=== PATIENT | male | born 1945 | race Caucasian/White ===

== ENCOUNTER 2016-06-15 19:52 | Inpatient (IN) ==
[2016-06-15] MEDS: *HR* OxyCODONE Immed Rel 5 MG TABLET PO PRN (23:55)
[2016-06-16] MEDS ORDERED: Acetaminophen 325 MG TABLET PO PRN (00:01)
[2016-06-16] MEDS ORDERED: Dextrose Gel 15 GM PO PRN ×2 (04:41)
[2016-06-16] MEDS ORDERED: D5% in Water 1,000 ML IV PRN (04:41)
[2016-06-16] MEDS ORDERED: *HR* Dextrose 50 % in Water (Syg) 50 ML SYRINGE IVP PRN (04:41)
[2016-06-16 06:44] LABS: Basophils % 0.1 %; Eosinophils % 0.2 %; Hematocrit 27.8 % (37.5-50.1); Hemoglobin 8.9 g/dL (12.9-16.9); Immature Granulocytes % 0.4 % (0-4); Lymphocytes # 1.5 K/mcL (0.6-4.6); Lymphocytes % 13.1 %; Mean Corpuscular Hemoglobin 28.1 pg (28.0-33.3); Mean Corpuscular Volume 87.7 fL (83.0-100.0); Mean Platelet Volume 10.4 fL (9.4-12.4); Monocytes # 0.8 K/mcL (0.0-1.3); Monocytes % 7.1 %; Neutrophils # 8.8 K/mcL (1.6-8.9); Platelet Count 296 K/mcL (140-400); Red Blood Count 3.17 M/mcL (4.19-5.50); Red Cell Distribution Width 17.8 % (11.5-14.5); Segmented Neutrophils % 79.1 %
[2016-06-16 06:50] LABS: INR 1.5; Prothrombin Time 16.6 Seconds (9.4-12.1)
[2016-06-16 06:53] LABS: Activated Partial Thrombo Time 29.8 Seconds (26.0-36.0)
[2016-06-16 07:02] LABS: BUN/Creatinine Ratio 31 (6-26); Blood Urea Nitrogen 17 mg/dL (8-26); Calcium 8.2 mg/dL (8.6-10.8); Carbon Dioxide 23 mEq/L (19-29); Chloride 114 mEq/L (98-109); Osmolality,Calculated 296 (280-300); Potassium 3.9 mEq/L (3.5-4.5); Sodium 144 mEq/L (136-145); eGFR For African Americans > 60 (> 60); eGFR For Non-African Americans > 60 (> 60)
[2016-06-16 07:40] LABS: Glucose 32 mg/dL (70-99)
[2016-06-16 07:47] LABS: Platelet Estimate Increased (Normal)
[2016-06-16 07:48] LABS: Anisocytosis 1+ (Not Present)
[2016-06-16] MEDS: Insulin LISPRO 300 UNITS/3 ML VIAL SQ SCH ×3 (08:45→16:56)
[2016-06-16] MEDS: Simethicone 80 MG TAB.CHEW PO PRN (09:15)
[2016-06-16] MEDS: *HR* Enoxaparin 80 MG/0.8 ML SYRINGE SQ SCH ×2 (09:20→22:09)
[2016-06-16] MEDS: Aspirin 81 MG TAB.CHEW PO SCH (10:43)
[2016-06-16] MEDS: Ascorbic Acid 500 MG TABLET PO SCH ×2 (10:43→22:09)
[2016-06-16] MEDS: *HR* OxyCODONE Immed Rel 5 MG TABLET PO PRN (11:29)
--- NOTE | 2016-06-16 15:00 | Internal Med History&Physical ---
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 Continue present management. Surgical follow-up at [facility] as directed. (2) CAD (coronary artery disease) Current visit: No Status: Chronic Continue Lopressor and aspirin. Qualifiers: Coronary Disease-Associated Artery/Lesion type: [place] artery [place] vs. transplanted heart: [place] heart Associated angina: without angina Qualified Code(s): I25.10 - Atherosclerotic heart disease of [place] coronary artery without angina pectoris (3) Anemia Current visit: Yes Status: Chronic Continue Procrit and monitor CBC Qualifiers: Anemia type: unspecified type Qualified Code(s): D64.9 - Anemia, unspecified (4) DM type 2 (diabetes mellitus, type 2) Current visit: No Status: Chronic Continue Accu-Cheks with SSI. Qualifiers: Diabetes mellitus complication status: with unspecified complications Diabetes mellitus rodent exterminator insulin use: with rodent exterminator use Qualified Code(s) : E11.8 - Type 2 diabetes mellitus with unspecified complications; Z79.4 - equipment operator intermodal yard (current) use of insulin (5) DVT (deep venous thrombosis) Current visit: No Status: Acute Status post IVC filter placement. Continue therapeutic dose Lovenox Qualifiers: DVT location: lower extremity Affected thrombotic vein of extremity: unspecified vein of extremity Laterality: bilateral Chronicity: chronic Qualified Code(s): I82.503 - Chronic embolism and thrombosis of unspecified deep veins of lower extremity, bilateral (6) Thrush, oral Current visit: Yes Status: Acute We will order Mycostatin mouthwash Internal Medicine - H&P: HPI Chief complaint: Pancreatitis complications Admitted From: Hospital to Hospital Transfer Plans for Post Hospital Care: Home History of present illness: Mr. Mike is a 70 year old male who was admitted to [facility] swing bed for ongoing care needs. He has been institutionalized continuously since 04/03/2016. He was at [facility] April 03-April 21 for complications of acute pancreatitis. He was admitted to [facility] swing bed April 21- but had worsening status so was transferred to [facility] April 27 where he remained until readmission to [facility] swing bed June 15. The [facility] hospitalization in March was the third hospitalization there since onset of pancreatitis 01/03/2016. Pancreatitis was felt to be due to metformin use. He developed a pseudocyst and attempted drainage via endoscopic shunt was unsuccessful. He developed sepsis and acute renal failure requiring hemodialysis during [facility] stays. Upon arrival to [facility] he underwent pancreatic necrosectomy with abdominal washout and IVC filter placement April 29. On May 02 he had laparotomy with pancreatic debridement and left thoracentesis. On May 10 he had laparotomy with abdominal washout gastrorrhaphy and NJ tube placement. On May 18 he abdominal wound exploration. Interventional radiology placed drains in the left upper quadrant May 30 and right upper quadrant June 08. These drains were removed prior to transfer to [facility] bed. He had multiple CT scans of abdomen/pelvis at [facility]. The most recent one was 05/29/2016 and resulted in placement of the abdominal drains described above by interventional radiology. His nutrition needs are met by continuous tube feedings through the NJ tube. Family reports that an attempt was made to do nocturnal feedings only but these were not tolerated well by the patient. He was told the past he had a "bad gallbladder" but has not had cholecystectomy. He had colon cancer 2003 with surgical resection but did not receive chemotherapy. He had a colonoscopy done during the [facility] stay. He does not have known disorders of his liver. Past Med Surg Social Fam HX - Past Medical History Medical history: arthritis, DVT, diabetes, hypertension, kidney stones, other Psychiatric history: no psych history - Past Surgical History Surgical History: cancer surgery, coronary bypass (CABG), IVC Filter, orthopedic , other - Social History Smoking Status: Never smoker Smokeless Tobacco Status: No Alcohol use: none Drug use: none - Family History Father Sister Hx Family Cardiac Disorders: Yes Brother Living Status: Still Living Hx Family Cardiac Disorders: Yes (CABG in his 60's) Sister Hx Family Cardiac Disorders: Yes (cardiac surgery) Internal Medicine - H&P: Meds Insulin Glargine,Hum.rec.anlog [Lantus Solostar] 10 unit SQ Q6H 05/20/15 [ History] Metoprolol [Lopressor] 50 mg PO BID #60 tablet 05/28/15 [Rx] Amoxicillin/Clavulanate [AUGMENTIN Susp] 875 mg PO BID 03/23/16 [History] Dicyclomine [Bentyl] 10 mg PO QID 03/23/16 [History] Enoxaparin [Lovenox] 90 mg SQ Q12HR 03/23/16 [History] Ferrous Sulfate Oral Soln 325 mg PO BID 03/23/16 [History] Fluconazole [Diflucan] 200 mg PO QDPC 03/23/16 [History] Levofloxacin [Levaquin] 500 mg PO QDPC 03/23/16 [History] Lidocaine 4% CRM (LMX) [Lmx 4] 5 ml TP QID PRN 03/23/16 [History] Lidocaine [Lidocaine] 2 patch TD QDPC 03/23/16 [History] Nutritional Supplement [Osmolite 1.2 Ambrosio] 237 ml NG DAILY 03/23/16 [History] Ondansetron ODT [Zofran ODT] 4 mg SL Q4HR PRN 03/23/16 [History] OxyCODONE Immed Rel [Roxicodone 5 MG] 5 mg PO Q6HR PRN 03/23/16 [History] Allergies lisinopril Allergy (Verified 03/23/16 20:07) Hives sitagliptin [From Januvia] Allergy (Verified 03/23/16 20:07) Hives insulin detemir [From Levemir] Adverse Reaction (Verified 05/21/15 17:16) Hives All Systems PM: A 10-system review of systems was performed and is negative for pertinent findings except as documented above in the HPI. Review of systems: Gen.: His weight has decreased from 84.2 kg on 04/27/2016 to 74.525 kg today. Cardiovascular: He has known ASHD status post 5 vessel CABG 05/22/2015. He has had bilateral leg and arm DVTs documented during his stay at [facility]. He had an IVC filter placed during his stay at [facility]. He denies NE heart failure pulmonary emboli or hypertension. Echocardiogram done 10/07/2015 showed LVEF of 70-75% with concentric LVH. The interventricular septum thickness was 1.5 cm and posterior wall thickness 1.4 cm. E/A ratio was 0.7. No significant valvular abnormalities were seen. Respiratory: He is a lifelong nonsmoker and has no known chronic lung disease GI: As per history of present illness : He has had kidney stones in the past year with lithotripsy. He had acute kidney injury with essentially full recovery during the March 2016 [facility] stay. He has BPH symptoms. Neurologic: He denies large distraction strokes or seizures Endocrine: He was diagnosed with DM 2 in 1997. He has hyperlipidemia but no known thyroid disease Hematology/oncology: he had colon cancer as per history of present illness. He has been diagnosed with anemia. Psychiatric: He has anxiety depression Musk skeletal: He has DJD but no known gout or other bone joint or muscle disorders. - Constitutional Vitals: Temp Pulse Resp BP Pulse Ox 97.9 F 114 20 118/71 98 06/16/16 07:00 06/16/16 13:21 06/16/16 13:21 06/16/16 13:21 06/16/16 13:21 Exam: Gen.: He is a well-developed frail and pale male lying in bed who appears uncomfortable HEENT: Head is atraumatic and normocephalic. Eyes: EOMI. There is no scleral icterus. Mouth: He appears to have thrush on his tongue. Neck: Supple and nontender. There is no thyromegaly or adenopathy noted. Heart: Regular without murmurs gallops or ectopics. Lungs: No wheezes or crackles are heard. Abdomen: He has healing incisions in the midline abdominal area. The abdomen is mildly tender to palpation. He has an Willie pouch on his left anterior lateral chest/upper anterolateral abdominal area with serous bloody drainage. He has an ostomy bag in his left posterior lateral thorax area. He has a gauze dressing over a right lateral drainage site with small amount of purulent drainage. This is presumably where IR placed a right abdominal drain a few days ago that was recently removed. Bowel sounds are present but diminished. Extremities: There is no cyanosis edema or clubbing noted. Dorsalis pedis and posttibial pulses are trace to 1+ palpable bilaterally. He has mild DJD changes of his hands. Neurologic: Mental status: He is talkative and a fair historian. He does not remember many details of his hospital stay. Cranial nerves: Smile is symmetric. Forehead wrinkles bilaterally. Tongue protrudes midline. EOMI. Motor: Grossly intact without further formal testing done Skin: Warm and dry. Internal Med - H&P Results - Labs CBC & Chem 7: 06/16/16 05:45 06/16/16 05:45 Labs: Short CBC 06/16/16 Range/Units 05:45 WBC 11.1 (4.3-11.1) K/mcL Hgb 8.9 L (12.9-16.9) g/dL Hct 27.8 L (37.5-50.1) % Plt Count 296 (140-400) K/mcL Neutrophils # 8.8 (1.6-8.9) K/mcL [facility] 06/16/16 05:45 Sodium 144 Potassium 3.9 Chloride 114 H Carbon Dioxide 23 BUN 17 Creatinine 0.54 L Glucose 32 L* Calcium 8.2 L
[2016-06-16] MEDS: *HR* Morphine 2 MG/ML SYRINGE IVP PRN (17:31)
[2016-06-16] MEDS: Nystatin SUSP 5 ML UD.LIQ PO SCH ×2 (18:06→22:09)
[2016-06-17] MEDS: *HR* Enoxaparin 80 MG/0.8 ML SYRINGE SQ SCH ×2 (06:02→20:33)
[2016-06-17] MEDS: *HR* OxyCODONE Immed Rel 5 MG TABLET PO PRN ×4 (06:02→20:34)
[2016-06-17 07:02] LABS: Basophils % 0.3 %; Eosinophils % 0.2 %; Hematocrit 27.3 % (37.5-50.1); Hemoglobin 8.4 g/dL (12.9-16.9); Immature Granulocytes % 0.4 % (0-4); Lymphocytes # 0.9 K/mcL (0.6-4.6); Lymphocytes % 9.6 %; Mean Corpuscular HGB Conc 30.8 g/dL (31.6-35.5); Mean Corpuscular Hemoglobin 27.2 pg (28.0-33.3); Mean Corpuscular Volume 88.3 fL (83.0-100.0); Mean Platelet Volume 10.4 fL (9.4-12.4); Monocytes # 0.7 K/mcL (0.0-1.3); Monocytes % 7.2 %; Platelet Count 297 K/mcL (140-400); Red Blood Count 3.09 M/mcL (4.19-5.50); Red Cell Distribution Width 17.6 % (11.5-14.5); Segmented Neutrophils % 82.3 %
[2016-06-17 07:18] LABS: Alanine Aminotransferase 16 Units/L (0-55); Albumin/Globulin Ratio 0.2 (1.1-2.2); Alkaline Phosphatase 578 Units/L (38-126); Aspartate Amino Transferase 18 Units/L (5-34); Bilirubin,Total 0.7 mg/dL (0.2-1.2); Blood Urea Nitrogen 16 mg/dL (8-26); Calcium 8.1 mg/dL (8.6-10.8); Carbon Dioxide 22 mEq/L (19-29); Chloride 110 mEq/L (98-109); Globulin 5.2 g/dL (2.4-3.5); Glucose 255 mg/dL (70-99); Magnesium 1.7 mg/dL (1.6-2.6); Osmolality,Calculated 300 (280-300); Phosphorous 2.8 mg/dL (2.3-4.7); Potassium 4.1 mEq/L (3.5-4.5); Sodium 140 mEq/L (136-145); Total Protein 6.3 g/dL (6.0-8.3)
[2016-06-17 07:27] LABS: Albumin 1.1 g/dL (3.5-5.0)
[2016-06-17] MEDS: Aspirin 81 MG TAB.CHEW PO SCH (09:08)
[2016-06-17] MEDS: Ascorbic Acid 500 MG TABLET PO SCH ×2 (09:08→20:45)
[2016-06-17] MEDS: Insulin LISPRO 300 UNITS/3 ML VIAL SQ SCH ×3 (09:16→16:48)
[2016-06-17] MEDS: Nystatin SUSP 5 ML UD.LIQ PO SCH ×4 (09:18→21:12)
[2016-06-17 09:38] LABS: BUN/Creatinine Ratio 24 (6-26); eGFR For African Americans > 60 (> 60); eGFR For Non-African Americans > 60 (> 60)
[2016-06-17 14:28] LABS: % Iron Saturation 12 % (20-55); Iron 16 mcg/dL (65-175); Transferrin 92 mg/dL (174-364)
[2016-06-17 14:59] LABS: Folate 16.5 ng/mL (7.0-31.4)
[2016-06-17 15:01] LABS: Vitamin B12 > 2000 pg/mL (213-816)
--- NOTE | 2016-06-17 16:03 | Internal Med Progress Note ---
Date of Encounter: 06/17/16 Time of Encounter: 15:50 - Assessment and plan (1) Necrotizing pancreatitis Current Visit: No Status: Chronic Assessment and plan: June 17. Status post multiple surgical interventions. Continue present management. Surgical follow-up at [facility] as directed. (2) CAD (coronary artery disease) Current Visit: No Status: Chronic Assessment and plan: June 17. Continue Lopressor and aspirin Qualifiers: Coronary Disease-Associated Artery/Lesion type: [place] artery [place] vs. transplanted heart: [place] heart Associated angina: without angina Qualified Code(s): I25.10 - Atherosclerotic heart disease of [place] coronary artery without angina pectoris (3) Anemia Current Visit: Yes Status: Chronic Assessment and plan: June 17. Continue Procrit. Will increase iron supplement since his iron level is still low. Qualifiers: Anemia type: unspecified type Qualified Code(s): D64.9 - Anemia, unspecified (4) DM type 2 (diabetes mellitus, type 2) Current Visit: No Status: Chronic Assessment and plan: June 17. Continue Accu-Cheks with SSI Qualifiers: Diabetes mellitus complication status: with unspecified complications Diabetes mellitus fci insulin use: with intermediate card tender use Qualified Code(s) : E11.8 - Type 2 diabetes mellitus with unspecified complications; Z79.4 - snf (current) use of insulin (5) DVT (deep venous thrombosis) Current Visit: No Status: Acute Assessment and plan: June 17. Continue therapeutic dose Lovenox. Status post IVC filter placement at [facility] Qualifiers: DVT location: lower extremity Affected thrombotic vein of extremity: unspecified vein of extremity Laterality: bilateral Chronicity: chronic Qualified Code(s): I82.503 - Chronic embolism and thrombosis of unspecified deep veins of lower extremity, bilateral (6) Thrush, oral Current Visit: Yes Status: Acute Assessment and plan: June 17. Continue nystatin mouthwash - Subjective Interval history: June 17. He has no new complaints. He was able to ambulate several feet with assistance earlier today. - Constitutional Vitals: Temp Pulse Resp BP Pulse Ox 99.1 F 111 28 119/55 100 06/17/16 07:38 06/17/16 13:48 06/17/16 13:48 06/17/16 13:48 06/17/16 13:48 Exam: He is resting comfortably in bed. He has a right medial conjunctival hemorrhage. His extremities show no edema. I reviewed his medications and lab results. Internal Medicine: Result - Labs CBC & Chem 7: 06/17/16 06:30 06/17/16 06:30 Labs: Short CBC 06/17/16 Range/Units 06:30 WBC 9.7 (4.3-11.1) K/mcL Hgb 8.4 L (12.9-16.9) g/dL Hct 27.3 L (37.5-50.1) % Plt Count 297 (140-400) K/mcL Neutrophils # 8.0 (1.6-8.9) K/mcL BMP 06/17/16 06:30 Sodium 140 Potassium 4.1 Chloride 110 H Carbon Dioxide 22 BUN 16 Creatinine 0.67 L Glucose 255 H Calcium 8.1 L Liver Function 06/17/16 Range/Units 06:30 Total Bilirubin 0.7 (0.2-1.2) mg/dL AST 18 (5-34) Units/L ALT 16 (0-55) Units/L Alkaline Phosphatase 578 H (38-126) Units/L Albumin 1.1 L (3.5-5.0) g/dL - ABG Interpretation ABG results: PT/INR, D-dimer PT 16.6 Seconds (9.4-12.1) H 06/16/16 05:45 Consult Discharge Plan - Plan Referrals: Choco Alejo DO [Primary Care Provider] - 1 week
[2016-06-17] MEDS: Simethicone 80 MG TAB.CHEW PO PRN (21:02)
[2016-06-17] MEDS: [UNRECOGNIZED DRUG - OTHER] SQ SCH (21:04)
[2016-06-17] MEDS: INSULIN GLARGINE SQ SCH (21:04)
[2016-06-18] MEDS: *HR* OxyCODONE Immed Rel 5 MG TABLET PO PRN ×4 (03:36→23:03)
[2016-06-18] MEDS ORDERED: Iron Sucrose Complex 200 MG in 0.9 % Sodium Chloride 100 ML IVPB SCH ×2 (09:00→11:00)
[2016-06-18] MEDS: Nystatin SUSP 5 ML UD.LIQ PO SCH ×4 (09:36→23:02)
[2016-06-18] MEDS: Aspirin 81 MG TAB.CHEW PO SCH (09:36)
[2016-06-18] MEDS: Ascorbic Acid 500 MG TABLET PO SCH ×2 (09:36→23:05)
[2016-06-18] MEDS: Insulin LISPRO 300 UNITS/3 ML VIAL SQ SCH ×3 (10:08→17:46)
[2016-06-18] MEDS: Simethicone 80 MG TAB.CHEW PO PRN (10:57)
[2016-06-18] MEDS: *HR* Morphine 2 MG/ML SYRINGE IVP PRN (11:30)
[2016-06-18] MEDS: *HR* Enoxaparin 80 MG/0.8 ML SYRINGE SQ SCH ×2 (22:21→23:10)
[2016-06-18] MEDS: [UNRECOGNIZED DRUG - OTHER] SQ SCH (22:59)
[2016-06-18] MEDS: INSULIN GLARGINE SQ SCH (22:59)
[2016-06-19 08:06] LABS: Hematocrit 25.3 % (37.5-50.1); Mean Corpuscular HGB Conc 31.6 g/dL (31.6-35.5); Mean Corpuscular Hemoglobin 28.4 pg (28.0-33.3); Mean Corpuscular Volume 89.7 fL (83.0-100.0); Platelet Count 305 K/mcL (140-400); Red Blood Count 2.82 M/mcL (4.19-5.50); Red Cell Distribution Width 17.2 % (11.5-14.5)
[2016-06-19] MEDS: Simethicone 80 MG TAB.CHEW PO PRN (08:16)
[2016-06-19 08:25] LABS: Alanine Aminotransferase 11 Units/L (0-55); Albumin 1.1 g/dL (3.5-5.0); Albumin/Globulin Ratio 0.2 (1.1-2.2); Alkaline Phosphatase 457 Units/L (38-126); Aspartate Amino Transferase 13 Units/L (5-34); BUN/Creatinine Ratio 25 (6-26); Bilirubin,Total 0.8 mg/dL (0.2-1.2); Blood Urea Nitrogen 15 mg/dL (8-26); Calcium 8.1 mg/dL (8.6-10.8); Carbon Dioxide 27 mEq/L (19-29); Chloride 107 mEq/L (98-109); Globulin 5.2 g/dL (2.4-3.5); Glucose 133 mg/dL (70-99); Osmolality,Calculated 293 (280-300); Potassium 4.3 mEq/L (3.5-4.5); Sodium 140 mEq/L (136-145); Total Protein 6.3 g/dL (6.0-8.3); eGFR For African Americans > 60 (> 60); eGFR For Non-African Americans > 60 (> 60)
[2016-06-19] MEDS ORDERED: Ondansetron 4 MG/2 ML VIAL IVP PRN (08:27)
[2016-06-19 08:29] LABS: Anisocytosis 1+ (Not Present); Lymphocytes # 1.9 K/mcL (0.6-4.6); Neutrophils # 8.1 K/mcL (1.6-8.9); Rouleaux Present (Not Present)
[2016-06-19] MEDS: Insulin LISPRO 300 UNITS/3 ML VIAL SQ SCH ×3 (08:29→17:38)
[2016-06-19] MEDS: *HR* OxyCODONE Immed Rel 5 MG TABLET PO PRN ×2 (10:46→17:38)
[2016-06-19] MEDS: Aspirin 81 MG TAB.CHEW PO SCH (10:47)
[2016-06-19] MEDS: Ascorbic Acid 500 MG TABLET PO SCH (10:48)
[2016-06-19] MEDS: Nystatin SUSP 5 ML UD.LIQ PO SCH (10:48)
[2016-06-19] MEDS: *HR* Enoxaparin 80 MG/0.8 ML SYRINGE SQ SCH (10:48)
--- NOTE | 2016-06-19 11:47 | Internal Med Progress Note ---
Date of Encounter: 06/19/16 Time of Encounter: 11:35 - Assessment and plan (1) Necrotizing pancreatitis Current Visit: No Status: Chronic Assessment and plan: June 17. Status post multiple surgical interventions. Continue present management. Surgical follow-up at [facility] as directed. (2) CAD (coronary artery disease) Current Visit: No Status: Chronic Assessment and plan: June 17. Continue Lopressor and aspirin Qualifiers: Coronary Disease-Associated Artery/Lesion type: [place] artery [place] vs. transplanted heart: [place] heart Associated angina: without angina Qualified Code(s): I25.10 - Atherosclerotic heart disease of [place] coronary artery without angina pectoris (3) Anemia Current Visit: Yes Status: Chronic Assessment and plan: June 17. Continue Procrit. Will increase iron supplement since his iron level is still low. June 19. Continue Procrit. I will give him a single dose of IV iron dextran to replenish his iron stores. We will discontinue daily IV iron sucrose Qualifiers: Anemia type: unspecified type Qualified Code(s): D64.9 - Anemia, unspecified (4) DM type 2 (diabetes mellitus, type 2) Current Visit: No Status: Chronic Assessment and plan: June 17. Continue Accu-Cheks with SSI Qualifiers: Diabetes mellitus complication status: with unspecified complications Diabetes mellitus terminal manager insulin use: with terminal manager use Qualified Code(s) : E11.8 - Type 2 diabetes mellitus with unspecified complications; Z79.4 - snf (current) use of insulin (5) DVT (deep venous thrombosis) Current Visit: No Status: Acute Assessment and plan: June 17. Continue therapeutic dose Lovenox. Status post IVC filter placement at [facility] Qualifiers: DVT location: lower extremity Affected thrombotic vein of extremity: unspecified vein of extremity Laterality: bilateral Chronicity: chronic Qualified Code(s): I82.503 - Chronic embolism and thrombosis of unspecified deep veins of lower extremity, bilateral (6) Thrush, oral Current Visit: Yes Status: Acute Assessment and plan: June 17. Continue nystatin mouthwash June 19. Will change to Diflucan and decrease dose of PPI - Subjective Interval history: June 17. He has no new complaints. He was able to ambulate several feet with assistance earlier today. June 19. He has no new complaints. He still has pain on swallowing pills - Constitutional Vitals: Temp Pulse Resp BP Pulse Ox 98.2 F 98 16 94/57 98 06/18/16 18:00 06/19/16 06:40 06/19/16 06:40 06/19/16 06:40 06/19/16 06:40 Exam: He is resting comfortably in bed. His affect is bright and cheerful. Extremities show no edema. The thrush on his tongue appears minimally improved. I reviewed his medications and lab results. Internal Medicine: Result - Labs CBC & Chem 7: 06/19/16 08:00 06/19/16 08:00 Labs: Short CBC 06/19/16 Range/Units 08:00 WBC 10.6 (4.3-11.1) K/mcL Hgb 8.0 L (12.9-16.9) g/dL Hct 25.3 L (37.5-50.1) % Plt Count 305 (140-400) K/mcL Neutrophils # 8.1 (1.6-8.9) K/mcL BMP 06/19/16 08:00 Sodium 140 Potassium 4.3 Chloride 107 Carbon Dioxide 27 BUN 15 Creatinine 0.60 L Glucose 133 H Calcium 8.1 L Liver Function 06/19/16 Range/Units 08:00 Total Bilirubin 0.8 (0.2-1.2) mg/dL AST 13 (5-34) Units/L ALT 11 (0-55) Units/L Alkaline Phosphatase 457 H (38-126) Units/L Albumin 1.1 L (3.5-5.0) g/dL - ABG Interpretation ABG results: PT/INR, D-dimer PT 16.6 Seconds (9.4-12.1) H 06/16/16 05:45 Consult Discharge Plan - Plan Referrals: Choco Alejo DO [Primary Care Provider] - 1 week
[2016-06-19] MEDS ORDERED: Mag Hydrox/Al Hydrox/Simeth 30 ML UDC PO PRN (11:50)
[2016-06-19] MEDS ORDERED: Fluconazole 100 MG TABLET PO SCH ×2 (12:00→14:45)
[2016-06-19] MEDS ORDERED: IRON DEXTRAN COMPLEX IVPB ONE ×3 (12:45→14:00)
[2016-06-19] MEDS ORDERED: SODIUM CHLORIDE 0.9% IVPB ONE ×2 (13:00→14:00)
[2016-06-19] MEDS ORDERED: Fluconazole 100 MG TABLET PO ONE (17:15)
[2016-06-19] MEDS: INSULIN GLARGINE SQ SCH (21:46)
[2016-06-19] MEDS: [UNRECOGNIZED DRUG - OTHER] SQ SCH (21:46)
[2016-06-19] MEDS: *HR* Enoxaparin 100 MG/ML SYRINGE SQ SCH (21:47)
[2016-06-20] MEDS: *HR* OxyCODONE Immed Rel 5 MG TABLET PO PRN (00:52)
[2016-06-20 05:16] LABS: Basophils % 0.2 %; Eosinophils % 0.3 %; Hematocrit 25.2 % (37.5-50.1); Hemoglobin 7.8 g/dL (12.9-16.9); Immature Granulocytes % 0.5 % (0-4); Lymphocytes # 1.4 K/mcL (0.6-4.6); Lymphocytes % 14.6 %; Mean Corpuscular Hemoglobin 27.7 pg (28.0-33.3); Mean Corpuscular Volume 89.4 fL (83.0-100.0); Mean Platelet Volume 10.4 fL (9.4-12.4); Monocytes # 0.6 K/mcL (0.0-1.3); Monocytes % 6.4 %; Neutrophils # 7.5 K/mcL (1.6-8.9); Platelet Count 316 K/mcL (140-400); Red Blood Count 2.82 M/mcL (4.19-5.50); Red Cell Distribution Width 17.2 % (11.5-14.5)
[2016-06-20 05:36] LABS: Alanine Aminotransferase 9 Units/L (0-55); Albumin/Globulin Ratio 0.2 (1.1-2.2); Alkaline Phosphatase 368 Units/L (38-126); Aspartate Amino Transferase 11 Units/L (5-34); BUN/Creatinine Ratio 23 (6-26); Blood Urea Nitrogen 14 mg/dL (8-26); Calcium 8.7 mg/dL (8.6-10.8); Carbon Dioxide 28 mEq/L (19-29); Chloride 106 mEq/L (98-109); Globulin 5.4 g/dL (2.4-3.5); Glucose 226 mg/dL (70-99); Osmolality,Calculated 298 (280-300); Sodium 140 mEq/L (136-145); Total Protein 6.5 g/dL (6.0-8.3); eGFR For African Americans > 60 (> 60); eGFR For Non-African Americans > 60 (> 60)
[2016-06-20 06:13] LABS: Bilirubin,Total 0.5 mg/dL (0.2-1.2); Potassium 4.6 mEq/L (3.5-4.5)
[2016-06-20 06:14] LABS: Albumin 1.1 g/dL (3.5-5.0)
[2016-06-20] MEDS: Aspirin 81 MG TAB.CHEW PO SCH (08:38)
[2016-06-20] MEDS: *HR* Enoxaparin 100 MG/ML SYRINGE SQ SCH (08:39)
[2016-06-20] MEDS: Ascorbic Acid 500 MG TABLET PO SCH ×2 (08:39→09:10)
[2016-06-20] MEDS: Insulin LISPRO 300 UNITS/3 ML VIAL SQ SCH ×3 (08:50→15:47)
[2016-06-20] MEDS ORDERED: Fluconazole 100 MG TABLET PO SCH ×2 (09:00)
--- NOTE | 2016-06-20 12:40 | Discharge Summary ---
Date of Encounter: 06/20/16 Time of Encounter: 09:15 - Discharge Diagnosis (1) Intra-abdominal abscess Priority: Primary Status: Acute (2) Necrotizing pancreatitis Priority: Secondary Status: Chronic (3) CAD (coronary artery disease) Priority: Secondary Status: Chronic Qualifiers: Coronary Disease-Associated Artery/Lesion type: [place] artery [place] vs. transplanted heart: [place] heart Associated angina: without angina Qualified Code(s): I25.10 - Atherosclerotic heart disease of [place] coronary artery without angina pectoris (4) Anemia Priority: Secondary Status: Chronic Qualifiers: Anemia type: unspecified type Qualified Code(s): D64.9 - Anemia, unspecified (5) DM type 2 (diabetes mellitus, type 2) Priority: Secondary Status: Chronic Qualifiers: Diabetes mellitus complication status: with unspecified complications Diabetes mellitus intermediate insulin use: with intermediate use Qualified Code(s) : E11.8 - Type 2 diabetes mellitus with unspecified complications; Z79.4 - senior living (current) use of insulin (6) DVT (deep venous thrombosis) Priority: Secondary Status: Acute Qualifiers: DVT location: lower extremity Affected thrombotic vein of extremity: unspecified vein of extremity Laterality: bilateral Chronicity: chronic Qualified Code(s): I82.503 - Chronic embolism and thrombosis of unspecified deep veins of lower extremity, bilateral (7) Thrush, oral Priority: Secondary Status: Acute - Discharge Medications Home Medications: Enoxaparin [Lovenox] 90 mg SQ Q12HR 03/23/16 [History] Lidocaine 2 patch TD QDPC 03/23/16 [History] Lidocaine 4% CRM (LMX) [Lmx 4] 5 ml TP QID PRN 03/23/16 [History] Allergies/Adverse Reactions: Allergies lisinopril Allergy (Verified 03/23/16 20:07) Hives sitagliptin [From Januvia] Allergy (Verified 03/23/16 20:07) Hives insulin detemir [From Levemir] Adverse Reaction (Verified 05/21/15 17:16) Hives Procedures/tests Complete & Pending: Procedures Performed prior 72 hours Category Date Time Status CT abd pelvis wo no iv no oral [CT] Stat Cat Scan 06/20/16 06:48 Draft Date of admission: 06/15/16 20:40 Primary care physician: Choco Alejo DO Consults: 06/15/16 23:00 Consult to Occupational Therapy [CONS] Routine Comment: Eval, Develop, and Implement P.O.C. Consult to Physical Therapy [CONS] Routine Comment: Eval, Develop, and Implement P.O.C. Consult to Research Laboratory Manager [CONS] Routine Reason for SW Consult: D/C planning 06/16/16 04:50 consult to sweeper brush maker machine [Consult to Nutrition] [CONS] Routine Comment: Consulting Provider: NUTRITION Reason for Dietary Consult: Supplemental Nutrition - Patient Status Disposition: Transfer Short-Term Hosp - Discharge Instructions Hospital course: Mr. Mike is a 70 year old male who was admitted to [facility] swing bed for ongoing care needs. He has been institutionalized continuously since 04/03/2016. He was at [facility] April 03-April 21 for complications of acute pancreatitis. He was admitted to [facility] bed April 21- but had worsening status so was transferred to [facility] April 27 where he remained until readmission to [facility] swing bed June 15. The [facility] hospitalization in March was the third hospitalization there since onset of pancreatitis 01/03/2016. Pancreatitis was felt to be due to metformin use. He developed a pseudocyst and attempted drainage via endoscopic shunt was unsuccessful. He developed sepsis and acute renal failure requiring hemodialysis during [facility] stays. Upon arrival to [facility] he underwent pancreatic necrosectomy with abdominal washout and IVC filter placement April 29. On May 02 he had laparotomy with pancreatic debridement and left thoracentesis. On May 10 he had laparotomy with abdominal washout gastrorrhaphy and [place] tube placement. On May 18 he abdominal wound exploration. Interventional radiology placed drains in the left upper quadrant May 30 and right upper quadrant June 08. These drains were removed prior to transfer to [facility]. He had multiple CT scans of abdomen/pelvis at [facility]. The most recent one was 05/29/2016 and resulted in placement of the abdominal drains described above by interventional radiology. His nutrition needs are met by continuous tube feedings through the [place] tube. Family reports that an attempt was made to do nocturnal feedings only but these were not tolerated well by the patient. He was told the past he had a "bad gallbladder" but has not had cholecystectomy. He had colon cancer 2003 with surgical resection but did not receive chemotherapy. He had a colonoscopy done during the [facility] stay. He does not have known disorders of his liver. Initial orders were written by the discharging physicians at [facility]. I saw him on June 16 and performed the swing bed history and physical. He had minimal progression during his swing bed stay. He had increased drainage noted from his left lateral abdominal drain evening of June 19. A CT of the abdomen was done in the spike driver of June 20. This showed a left lateral abdominal wall fluid collection consistent with abscess measuring 6.1 x 3.7 cm. There was a loculated right lateral pelvis abscess measuring 7.6 x 3.9 cm. I discussed these findings with the family. They wished him to be transferred to [facility]. I spoke to physicians at [facility] and they agreed to accept him in transfer. - Time Spent with Patient Total time spent providing and/or coordinating discharge services: - Constitutional Vitals: Temp Pulse Resp BP Pulse Ox 97.7 F 96 16 97/53 97 06/20/16 10:50 06/20/16 10:50 06/20/16 10:50 06/20/16 10:50 06/20/16 10:50
[2016-06-20 14:54] VITALS: BP 113/66
[2016-06-20] MEDS: *HR* Morphine 2 MG/ML SYRINGE IVP PRN ×2 (14:54→18:39)
[2016-06-20] MEDS ORDERED: D5% in 0.45% NACL 1,000 ML IVC SCH (15:30)
[2016-07-06] MEDS ORDERED: Cyanocobalamin (B-12) 1,000 MCG/ML VIAL IM ONE (09:00)
== END 2016-06-20 19:00 | disposition short-term general hospital (02) | DRG 372 ==
LOC: INPPIK 20:40
PROVIDERS: ADMIT Internal Medicine; ATTEND Internal Medicine